=== PATIENT | male | born 1955 | race Caucasian/White ===

== ENCOUNTER 2016-07-05 08:02 | Day surgery (SDC) | payer OTHER ==
[2016-07-03 11:16] VITALS: BMI 27.4
[2016-07-05] MEDS ORDERED: BUPIVACAINE HCL 0.25% 125 MG/50 ML VIAL ONE (10:12)
[2016-07-05] MEDS ORDERED: LIDOCAINE HCL 2% (20ML MULTI-DOSE VIAL) NR ONE (10:12)
[2016-07-05] MEDS ORDERED: PROPOFOL 20 ML ONE ×2 (10:16)
[2016-07-05] MEDS ORDERED: LIDOCAINE HCL 1%, 10 MG/ML (50 mL VIAL) IJ ONE (10:41)
[2016-07-05] MEDS ORDERED: ONDANSETRON 4 MG/2 ML VIAL IVPUSH PRN (10:57)
[2016-07-05] MEDS ORDERED: LACTATED RINGERS SOLUTION 1,000 ML IV SCH (11:00)
[2016-07-05] MEDS ORDERED: oxyCODONE HCL 5 MG TABLET PO PRN (11:51)
[2016-07-05] MEDS ORDERED: PROMETHAZINE HCL 25 MG/1 ML VIAL IVPUSH PRN (11:52)
[2016-07-05 12:28] VITALS: BP 135/89; PULSE 71; TEMP 98.2
--- NOTE | 2016-07-07 23:53 | OP ---
DATE OF OPERATION: 07/05/2016 SURGEON: Brian Reed M.D. CEMENTER HAND: Jean Marie Mueller PREOPERATIVE DIAGNOSIS: Left wrist Dequervaine tenosynovitis. POSTOPERATIVE DIAGNOSIS: Left wrist Dequervaine tenosynovitis. PROCEDURE: Release of left wrist Dequervaine tenosynovitis. FINDINGS: Thickened Dequervaine sheath with impingement upon the abductor extensor tendon. PROCEDURE: After informed consent was obtained, patient was taken to the operating room where the left upper extremity was prepped and draped in sterile fashion. Local anesthesia 1% lidocaine was injected to the area of the Dequervaine sheath. The tourniquet was inflated to 250 mmHg. A horizontal incision was made 2 cm proximal to the distal . The soft tissue was dissected very carefully to avoid neurovascular structures. A longitudinal incision was made across Dequervaine sheath and then extended proximally and distally, releasing the tendon. Curved hemostats were placed around the tendon were identified and minor fraying was debrided. No other abnormality was noted. The wound was irrigated with copious irrigation and closed with 4-0 nylon in single interrupted sutures. BRIAN REED M.D. [id number]
== END 2016-07-05 12:30 | disposition home or self-care (01) ==
LOC: FASU 08:02
PROVIDERS: ATTEND Orthopaedic Surgery
PROC: 0L860ZZ Division of Left Lower Arm and Wrist Tendon, Open Approach (ICD-10-PCS; principal; 2016-07-05 09:30)
DX: M65.4 Radial styloid tenosynovitis [de Quervain] (principal)
CPT/HCPCS: 94760

== ENCOUNTER 2020-04-28 05:59 | Day surgery (SDC) | payer OTHER ==
[2020-04-26 14:35] VITALS: BMI 27.4
[2020-04-28] MEDS ORDERED: MIDAZOLAM HCL 2 MG/2 ML SINGLE DOSE VIAL ONE ×2 (07:04→07:11)
[2020-04-28] MEDS ORDERED: ROPIVACAINE HCL 0.5% 30ML VIAL ONE (07:04)
[2020-04-28] MEDS ORDERED: PROPOFOL 20 ML ONE ×3 (07:11)
[2020-04-28] MEDS ORDERED: SEVOFLURANE 250 ML BTL ONE (07:12)
[2020-04-28] MEDS ORDERED: DESFLURANE GAS 240 ML BOTTLE IH ONE (07:12)
[2020-04-28] MEDS ORDERED: EPINEPHrine 1:1,000 1 MG/1 ML - 30ML VIAL (INJECTION) ONE (07:18)
[2020-04-28] MEDS ORDERED: SUCCINYLCHOLINE CHLORIDE 200 MG/10 ML SYRINGE ONE (07:19)
[2020-04-28] MEDS ORDERED: ceFAZolin SODIUM 1 GM VIAL ONE (07:58)
[2020-04-28] MEDS ORDERED: KETOROLAC TROMETHAMINE 30 MG/1 ML VIAL ONE (07:58)
[2020-04-28] MEDS ORDERED: DEXAMETHASONE SOD PHOSPHATE 4 MG/1 ML VIAL ONE (07:58)
[2020-04-28] MEDS ORDERED: ONDANSETRON 4 MG/2 ML VIAL ONE (07:58)
[2020-04-28] MEDS ORDERED: ONDANSETRON 4 MG/2 ML VIAL IVPUSH PRN (08:50)
[2020-04-28] MEDS ORDERED: oxyCODONE HCL 5 MG TABLET PO PRN (08:50)
[2020-04-28] MEDS ORDERED: LACTATED RINGERS SOLUTION 1,000 ML IV SCH (09:00)
[2020-04-28] MEDS ORDERED: oxyCODONE HCL 5 MG TABLET ONE (10:38)
[2020-04-28 10:45] VITALS: TEMP 98
[2020-04-28 11:25] VITALS: BP 119/77; PULSE 66
== END 2020-04-28 11:15 | disposition home or self-care (01) ==
LOC: FASU 05:59
PROVIDERS: ATTEND Orthopaedic Surgery
PROC: 0LS34ZZ Reposition Right Upper Arm Tendon, Percutaneous Endoscopic Approach (ICD-10-PCS; 2020-04-28)
PROC: 0RNJ4ZZ Release Right Shoulder Joint, Percutaneous Endoscopic Approach (ICD-10-PCS; 2020-04-28)
PROC: 0RQJ4ZZ Repair Right Shoulder Joint, Percutaneous Endoscopic Approach (ICD-10-PCS; 2020-04-28)
PROC: 0MM14ZZ Reattachment of Right Shoulder Bursa and Ligament, Percutaneous Endoscopic Approach (ICD-10-PCS; 2020-04-28)
PROC: 0LQ14ZZ Repair Right Shoulder Tendon, Percutaneous Endoscopic Approach (ICD-10-PCS; 2020-04-28)
PROC: 0LS34ZZ Reposition Right Upper Arm Tendon, Percutaneous Endoscopic Approach (ICD-10-PCS; 2020-04-28)
PROC: 0RBJ4ZZ Excision of Right Shoulder Joint, Percutaneous Endoscopic Approach (ICD-10-PCS; 2020-04-28)
PROC: 0LQ14ZZ Repair Right Shoulder Tendon, Percutaneous Endoscopic Approach (ICD-10-PCS; principal; 2020-04-28 08:11)
DX: M75.101 Unspecified rotator cuff tear or rupture of right shoulder, not specified as traumatic (principal); M75.01 Adhesive capsulitis of right shoulder; M75.41 Impingement syndrome of right shoulder; M19.011 Primary osteoarthritis, right shoulder; S43.491A Other sprain of right shoulder joint, initial encounter; M65.811 Other synovitis and tenosynovitis, right shoulder; S43.431A Superior glenoid labrum lesion of right shoulder, initial encounter; Y93.89 Activity, other specified; Y92.89 Other specified places as the place of occurrence of the external cause; Y99.8 Other external cause status
CPT/HCPCS: 88304-TC; 94760

== ENCOUNTER 2020-04-29 15:40 | Emergency (ER) | payer OTHER ==
[2020-04-29 15:52] VITALS: BP 158/97; PULSE 92; TEMP 98.2; BMI 27.7
[2020-04-29] MEDS ORDERED: IBUPROFEN 400 MG TABLET (FP) PO ONE ×2 (16:22→18:12)
== END 2020-04-29 20:15 | disposition home or self-care (01) ==
LOC: FER 15:40
DX: R22.41 Localized swelling, mass and lump, right lower limb (principal); R22.42 Localized swelling, mass and lump, left lower limb
CPT/HCPCS: 73610-TC-LT-FY; 93970-TC; 99284-25

== ENCOUNTER 2021-11-17 16:20 | Emergency (ER) | payer OTHER ==
[2021-11-17 16:51] VITALS: BP 129/83; PULSE 88; RESP 18; TEMP 97.8; BMI 27.9
[2021-11-17 19:15] LABS: HEMATOCRIT 44.8 % (35.4-49); HEMOGLOBIN 16.1 G/dL (11.7-16.9); MCH 33.6 pg (25.7-33.7); MCHC 35.9 g/dl (32.0-35.9); MEAN CELL VOLUME 93.6 fl (80-96); MEAN PLT VOLUME 8.2 fl (7.5-11.1); PLATELET COUNT 180.5 10^3/uL (134-434); RBC 4.79 10^6/uL (4.00-5.60); RDW 13.1 % (11.9-15.9)
[2021-11-17 19:27] LABS: INR 1.02 (0.83-1.09); PROTHROMBIN TIME (PATIENT) 11.7 SEC (9.7-13.0)
[2021-11-17 19:29] LABS: ACTIVATED PTT 33.6 SECONDS (25.2-36.5)
[2021-11-17 19:33] LABS: ALBUMIN 3.9 g/dl (3.4-5.0); BILIRUBIN,TOTAL 0.7 mg/dl (0.2-1); CALCIUM 9.1 mg/dl (8.5-10); TOT PROT 7.2 g/dl (6.4-8.2)
== END 2021-11-17 21:22 | disposition home or self-care (01) ==
LOC: FER 16:20
DX: R22.41 Localized swelling, mass and lump, right lower limb (principal)
CPT/HCPCS: 36415; 80053; 83735; 85027; 85379; 85610; 85730; 93971-TC; 99284-25